=== PATIENT | male | born 1940 | race Caucasian/White ===

== ENCOUNTER 2016-11-14 21:40 | Emergency (ER) | payer SELFPAY ==
[2016-11-14 22:28] LABS: BASOPHIL 0.2 % (0-2); EOSINOPHIL 1.8 % (0-7); HCT 37.9 % (42.0-52.0); LYMPHOCYTE 21.9 % (15-48); MCH 31.9 pg (25.0-31.0); MCHC 34.3 g/dL (32.0-36.0); MCV 93.1 fL (78.0-100.0); MONOCYTE 8.7 % (0-12); MPV 8.4 fL (6.0-9.5); NEUTROPHIL 67.4 % (41-80); PLT 296 K/uL (150-400); RBC 4.07 M/uL (4.70-6.00); RDW 12.9 % (11.5-14.0); WBC 9.8 K/uL (4.0-10.5)
[2016-11-14 22:41] LABS: INR 1.06 (0.9-1.2); PROTHROMBIN TIME 13.4 SECONDS (11.7-14.0); PTT 39.7 SECONDS (23.2-31.4)
[2016-11-14 22:42] LABS: D-DIMER 0.73 ug/mLFEU (0.00-0.41)
[2016-11-14 22:44] LABS: LACTIC ACID 1.4 mmol/L (0.5-2.2)
[2016-11-14 22:47] LABS: ALBUMIN 4.1 g/dL (3.4-4.8); BILIRUBIN - TOTAL 0.6 mg/dL (0.1-1.0); CREATININE 1.1 mg/dL (0.7-1.2); GLOBULIN (CALCULATION) 3.9 g/dL (2.2-4.2); MAGNESIUM 2.1 mg/dL (1.40-2.10); POTASSIUM 3.7 mmol/L (3.5-5.1)
[2016-11-14 22:49] LABS: CKMB 1.26 ng/mL (0.97-4.94); MYOGLOBIN 26 ng/mL (26-65); TROPONIN T < 0.010 ng/mL
[2016-11-14 22:59] LABS: PRO-BNP 148 pg/mL (0-125)
== END 2016-11-15 04:00 | disposition home or self-care (01) ==
LOC: FER 21:40
PROVIDERS: Emergency Medicine Emergency Medical Services
DX: J18.9 Pneumonia, unspecified organism (principal); I44.0 Atrioventricular block, first degree; E86.9 Volume depletion, unspecified; I10 Essential (primary) hypertension
CPT/HCPCS: 36415; 36600; 71010; 71275; 80053; 82550; 82553; 82803; 83605; 83735; 83874; 83880; 84484; 85025; 85379; 85610; 85730; 87040; 93005; J1885; J2270; J2405; J2930; Q9967